=== PATIENT | female | born 1975 | race Caucasian/White ===

== ENCOUNTER 2017-03-28 23:34 | Emergency (ER) | payer OTHER ==
[~2017-03-28] VITALS: Ht 152.4 cm; Wt 63.4 kg
[2017-03-29] MEDS ORDERED: PRED20TA PO (04:21)
[2017-03-29] MEDS ORDERED: predniSONE 20 MG TAB PO ONE (04:30)
[2017-03-29] MEDS ORDERED: hydrOXYzine 25 MG TAB PO ONE (04:30)
[2017-03-29] MEDS ORDERED: hydrOXYzine 50 MG TAB PO ONE (04:30)
[2017-03-29 04:34] VITALS: BP 126/80
== END 2017-03-29 04:37 | disposition home or self-care (01) ==
LOC: M ED 03-29 00:51
DX: L25.9 Unspecified contact dermatitis, unspecified cause (principal); Z88.0 Allergy status to penicillin

== ENCOUNTER 2017-05-23 19:01 | Emergency (ER) | payer OTHER ==
[~2017-05-23] VITALS: Ht 152.4 cm; Wt 60.2 kg
[~2017-05-23 19:01] MED LIST: PRED20TA PO
[2017-05-23] MEDS ORDERED: [UNRECOGNIZED DRUG - OTHER] (19:14)
[2017-05-23] MEDS ORDERED: ACETAMINOPHEN 325 MG TAB PO ONE (19:30)
[2017-05-23 20:50] VITALS: BP 148/52
--- NOTE | 2017-05-24 01:04 | REP ---
Clinical: Trauma. Technique: AP, lateral, bilateral oblique and sunrise views of the right knee. Findings: No acute fracture or dislocation. Age-related changes are appreciated. Effusion cannot be excluded. Impression: Effusion suggested. No acute fracture or dislocation. Signed by Ray Bar MD 05/24/2017 12:55 A
== END 2017-05-23 20:51 | disposition home or self-care (01) ==
LOC: M ED 19:32
DX: S80.01XA Contusion of right knee, initial encounter (principal); W18.09XA Striking against other object with subsequent fall, initial encounter; Y92.019 Unspecified place in single-family (private) house as the place of occurrence of the external cause; Y93.89 Activity, other specified; Y99.8 Other external cause status; Z88.0 Allergy status to penicillin

== ENCOUNTER 2019-08-18 12:11 | Inpatient (IN) | payer MEDICAID, OTHER ==
[~2019-08-18] VITALS: Ht 152.4 cm; Wt 77.3 kg
[~2019-08-18 12:11] MED LIST changes: +[UNRECOGNIZED DRUG - OTHER]
[2019-08-18 12:59] LABS: HEMATOCRIT 51.6 % (36.0-47.0); MEAN CORPUSCULAR HEMOGLOBIN 29.6 pg (27.0-33.0); MEAN CORPUSCULAR HGB CONC 32.9 g/dl (32.0-36.5); MEAN CORPUSCULAR VOLUME 89.9 fl (80.0-96.0); PLATELET COUNT, AUTOMATED 323 10^3/uL (150-450); RED BLOOD COUNT 5.74 10^6/uL (4.00-5.40)
[2019-08-18 13:25] LABS: HCG, SERUM QUALITATIVE NEGATIVE (NEGATIVE)
[2019-08-18 13:32] LABS: AMPHETAMINES LEVEL URINE NEGATIVE (NEGATIVE); BARBITURATES URINE NEGATIVE (NEGATIVE); BENZODIAZEPINES URINE NEGATIVE (NEGATIVE); CANNABINOIDS URINE NEGATIVE (NEGATIVE); COCAINE METABOLITE URINE NEGATIVE (NEGATIVE); METHADONE URINE NEGATIVE (NEGATIVE); OPIATES URINE NEGATIVE (NEGATIVE); PHENCYCLIDINE URINE NEGATIVE (NEGATIVE)
[2019-08-18 13:34] LABS: ACETAMINOPHEN LEVEL < 2.0 UG/ML (10.0-30.0); ALT/SGPT 30 U/L (12-78); BILIRUBIN,DIRECT 0.1 MG/DL (0.0-0.2); BILIRUBIN,TOTAL 0.5 MG/DL (0.2-1.0); BLOOD UREA NITROGEN 6 MG/DL (7-18); CALCIUM LEVEL 9.6 MG/DL (8.5-10.1); CARBON DIOXIDE LEVEL 28 MEQ/L (21-32); CHLORIDE LEVEL 106 MEQ/L (98-107); CREATININE FOR GFR 0.95 MG/DL (0.55-1.30); ETHYL ALCOHOL (ETHANOL) < 0.003 % (0.000-0.010); GLOMERULAR FILTRATION RATE > 60.0 (>58); GLUCOSE, FASTING 88 MG/DL (70-100); POTASSIUM SERUM 4.3 MEQ/L (3.5-5.1); SALICYLATE LEVEL 1.8 MG/DL (5.0-30.0); SODIUM LEVEL 142 MEQ/L (136-145); THYROID STIMULATING HORMONE 0.937 uIU/ML (0.358-3.740); TOTAL PROTEIN 7.6 GM/DL (6.4-8.2)
[2019-08-18] MEDS ORDERED: MOM 30ML SUSPENSION UDC PO PRN (16:45)
[2019-08-18 17:21] VITALS: BP 139/80
[2019-08-18] MEDS: IBUPROFEN 400 MG TAB PO PRN (19:44)
[2019-08-18] MEDS: traZODone 50 MG TAB PO PRN (22:40)
[2019-08-19 06:26] VITALS: BP 135/75
[2019-08-19] MEDS: IBUPROFEN 400 MG TAB PO PRN ×2 (08:13→20:49)
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
--- NOTE | 2019-08-19 11:44 | CR.PDOC ---
General Date of Consultation: Aug 19, 2019 Consultation CHIEF COMPLAINT: Suicidal ideation HISTORY OF PRESENT ILLNESS: This is a 44-year-old female with a known history of depression and ADHD presents with suicidal ideation brought in the emergency room by police with a plan to stab herself. She seen examined in the inpatient mental health unit today is the presence of traffic rate analyst. The patient, she has been without her medications for 1 month although she does not take significant medications other than her psychiatric ones. Otherwise patient denies weight loss, hair loss, headache, visual changes, chest pain, shortness of breath, cough, nausea, vomiting, diarrhea, abdominal pain, muscle aches, worsening arthritis, change in mood PAST MEDICAL HISTORY: 1. Obesity. 2. Tobacco abuse. 3. Asthma 4. ADHD 5. Diabetes not on any medications 6. Menorrhagia. HOME MEDICATIONS: Please see below. ALLERGIES: Please see below PAST SURGICAL HISTORY: None. 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 ETOH: Denies, Illicit drug use: Denies but admits to 4 cans of red bull per day, CODE STATUS: For code FAMILY HISTORY:Reviewed and noncontributory REVIEW OF SYSTEMS: 10 systems reviewed and negative other than HPI PHYSICAL EXAMINATION: VITAL SIGNS: Temperature 99.9, pulse 70, respiratory rate 14, blood pressure 135/75, pulse oximetry 96 % on room air. GENERAL: Pleasant morbidly obese female sitting up in awake alert oriented speaking in complete sentences no acute distress HEENT: Moist mucous membranes no elevation in CVP CARDIOVASCULAR: S1 S2 regular no additional heart sounds appreciated. RESPIRATORY: Clear to auscultation bilaterally. ABDOMINAL: Bowel sounds present abdomen soft and nontender, obese EXTREMITIES: No clubbing cyanosis or edema NEUROLOGICAL: Spontaneously moves all 4 extremities cranial 2 through 12 grossly intact no gross focal deficits appreciated PSYCHOLOGICAL: Somewhat depressed LABORATORY DATA: See below. MICROBIOLOGY: Please see below. IMAGING: None ASSESSMENT & PLAN: This is a 44-year-old female with suicidal ideation seen for medical exam as an inpatient mental health unit admission. PROBLEMS: 1. Diabetes: I'll check hemoglobin A1c she is not currently on any medication we'll evaluate the need for initiation of any. 2. Asthma: She uses only when necessary given her reactive tobacco use though certainly concern for possible underlying COPD recommended outpatient follow-up I'll provide her with an MDI while hospitalized when necessary she's been without this for a month 3. Polycythemia: Possibly related to tobacco abuse I will recheck a CBC today may have underlying sleep apnea as well given her body habitus consider further outpatient follow-up 4. Morbid obesity: Lifestyle modification advised complicating care 5. Tobacco abuse: Cessation counseling provided 6. ADHD: Patient requests resumption of her home medications will defer to psychiatry 7. Suicidal ideation: We'll defer to psychiatry DVT PROPHYLAXIS:Ambulating Thank you for involving us in this interesting patient's care please not hesitate to Vocera Secure text us with any specific questions Vital Signs/I&O Vital Signs Date Time Temp Pulse Resp B/P (MAP) Pulse Ox O2 Delivery O2 Flow Rate FiO2 08/19/19 08:47 Room Air 08/19/19 06:26 99.9 70 14 135/75 (95) 08/18/19 17:08 96 Laboratory Data Labs 24H Laboratory Tests 2 08/18/19 12:38: Nucleated Red Blood Cells % (auto) 0.0, Anion Gap 8, Glomerular Filtration Rate > 60.0, Calcium Level 9.6, Aspartate Amino Transf (AST/SGOT) 22, Alanine Aminotransferase (ALT/SGPT) 30, Alkaline Phosphatase 104, Total Bilirubin 0.5, Direct Bilirubin 0.1, Total Protein 7.6, Albumin 4.0, Albumin/Globulin Ratio 1.11, Thyroid Stimulating Hormone (TSH) 0.937, Human Chorionic Gonadotropin, Qual NEGATIVE, Salicylates Level 1.8L, Urine Amphetamines Screen NEGATIVE, Urine Benzodiazepines Screen NEGATIVE, Urine Opiates Screen NEGATIVE, Urine Methadone Screen NEGATIVE, Acetaminophen Level < 2.0L, Urine Barbiturates Screen NEGATIVE, Urine Phencyclidine Screen NEGATIVE, Urine Cocaine Metabolite Screen NEGATIVE, Urine Cannabinoids Screen NEGATIVE, Ethyl Alcohol Level < 0.003 CBC/BMP Laboratory Tests 08/18/19 12:38 Red Blood Count 5.74 H, Mean Corpuscular Volume 89.9, Mean Corpuscular Hemoglobin 29.6, Mean Corpuscular Hemoglobin Concent 32.9, Red Cell Distribution Width 12.6 Allergies Coded Allergies: Penicillins (Verified Allergy, Unknown, 08/18/19) Home Medications No Active Prescriptions or Reported Meds NAHID LANGLEY MD Aug 19, 2019 11:44
[2019-08-19] MEDS ORDERED: FLUoxetine 10 MG CAP PO ONE (12:15)
[2019-08-19] MEDS: ALBUTEROL 90 MCG/ACT 8GM HFA INHALER INH PRN ×2 (12:15→20:49)
[2019-08-19 12:18] LABS: HEMATOCRIT 45.6 % (36.0-47.0); MEAN CORPUSCULAR HEMOGLOBIN 29.4 pg (27.0-33.0); MEAN CORPUSCULAR HGB CONC 32.7 g/dl (32.0-36.5); MEAN CORPUSCULAR VOLUME 90.1 fl (80.0-96.0); PLATELET COUNT, AUTOMATED 289 10^3/uL (150-450); WHITE BLOOD COUNT 12.6 10^3/uL (4.0-10.0)
[2019-08-19 12:34] LABS: HEMOGLOBIN A1c 5.6 %
[2019-08-19 14:10] LABS: HEMOGLOBIN 14.9 g/dl (12.0-15.5); RED BLOOD COUNT 5.06 10^6/uL (4.00-5.40)
[2019-08-19 16:37] VITALS: BP 121/79
[2019-08-19] MEDS: traZODone 50 MG TAB PO PRN (20:49)
[2019-08-19] MEDS: hydrOXYzine 25 MG TAB PO PRN (20:49)
[2019-08-19] MEDS: MAALOX 30 ML SUSP *UDC PO PRN (22:13)
[2019-08-20 06:24] VITALS: BP 106/57
[2019-08-20] MEDS: FLUoxetine 20 MG CAP PO SCH (08:53)
[2019-08-20] MEDS: IBUPROFEN 400 MG TAB PO PRN ×2 (08:54→19:32)
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
[2019-08-20] MEDS: hydrOXYzine 25 MG TAB PO PRN ×2 (13:45→20:18)
[2019-08-20 18:00] VITALS: BP 133/80
[2019-08-20] MEDS: ALBUTEROL 90 MCG/ACT 8GM HFA INHALER INH PRN (20:18)
[2019-08-20] MEDS: MAALOX 30 ML SUSP *UDC PO PRN (20:40)
[2019-08-20] MEDS: traZODone 50 MG TAB PO PRN (21:24)
[2019-08-21 06:24] VITALS: BP 149/67
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
[2019-08-21] MEDS: FLUoxetine 20 MG CAP PO SCH (08:45)
[2019-08-21] MEDS: IBUPROFEN 400 MG TAB PO PRN (08:46)
[2019-08-21 15:40] VITALS: BP 118/60
[2019-08-21] MEDS: ALBUTEROL 90 MCG/ACT 8GM HFA INHALER INH PRN (20:45)
[2019-08-21] MEDS: traZODone 50 MG TAB PO PRN (20:46)
[2019-08-21] MEDS: MAALOX 30 ML SUSP *UDC PO PRN (21:32)
[2019-08-21] MEDS: hydrOXYzine 25 MG TAB PO PRN (22:39)
[2019-08-22 06:28] VITALS: BP 131/76
[2019-08-22] MEDS: FLUoxetine 20 MG CAP PO SCH (08:07)
[2019-08-22] MEDS: ALBUTEROL 90 MCG/ACT 8GM HFA INHALER INH PRN ×2 (08:07→20:19)
[2019-08-22] MEDS: hydrOXYzine 25 MG TAB PO PRN (14:33)
[2019-08-22 16:00] VITALS: BP 123/60
[2019-08-22] MEDS: IBUPROFEN 400 MG TAB PO PRN (20:18)
[2019-08-22] MEDS: traZODone 50 MG TAB PO PRN (20:18)
[2019-08-22] MEDS: MAALOX 30 ML SUSP *UDC PO PRN (21:01)
[2019-08-23 06:31] VITALS: BP 124/72
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
[2019-08-23] MEDS: FLUoxetine 20 MG CAP PO SCH (08:13)
[2019-08-23] MEDS: ALBUTEROL 90 MCG/ACT 8GM HFA INHALER INH PRN ×2 (08:13→20:09)
[2019-08-23] MEDS: IBUPROFEN 400 MG TAB PO PRN (08:14)
[2019-08-23 16:00] VITALS: BP 131/74
--- NOTE | 2019-08-23 16:35 | MHIPN ---
DATE: 08/10/2208/23/2019 CHIEF COMPLAINT: Says feels okay. SUBJECTIVE: Seen for followup in the presence of staff. Says feels okay, moods are okay, and that she had a good night. MENTAL STATUS EXAMINATION: Neat, cooperative, coherent, no agitation. Affect is reasonable range. Denies any thoughts of harming herself or anyone else. Currently, no evidence of any psychosis. Cognition grossly intact. Judgment and insight improved. ASSESSMENT: 1. Other specified anxiety disorder. PLAN: Continue current care and observations, she will be seeing her psychiatrist and the treatment team tomorrow. She has been encouraged to participate in activities in the unit. VITAL SIGNS: Blood pressure 124/72, pulse 52, temperature 98.6.
[2019-08-23] MEDS: traZODone 50 MG TAB PO PRN (20:07)
[2019-08-23] MEDS: MAALOX 30 ML SUSP *UDC PO PRN (21:08)
[2019-08-24] MEDS: hydrOXYzine 25 MG TAB PO PRN (06:06)
[2019-08-24 06:21] VITALS: BP 148/65
[2019-08-24] MEDS: FLUoxetine 20 MG CAP PO SCH (09:15)
[2019-08-24] MEDS ORDERED: FLUO20CA19 PO (10:01)
[2019-08-24] MEDS ORDERED: HYDR-3363 PO (10:01)
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
== END 2019-08-24 13:33 | disposition home or self-care (01) | DRG 755 ==
LOC: M ED 12:11 → M ED INP 16:42 → M PSY 17:14
PROVIDERS: ADMIT Psychiatry & Neurology Addiction Medicine; ATTEND Psychiatry & Neurology Psychiatry
DX: F43.23 Adjustment disorder with mixed anxiety and depressed mood (principal); F70 Mild intellectual disabilities; F17.210 Nicotine dependence, cigarettes, uncomplicated; F12.90 Cannabis use, unspecified, uncomplicated; F90.9 Attention-deficit hyperactivity disorder, unspecified type; E66.01 Morbid (severe) obesity due to excess calories; E11.9 Type 2 diabetes mellitus without complications; J45.909 Unspecified asthma, uncomplicated; N92.0 Excessive and frequent menstruation with regular cycle; D75.1 Secondary polycythemia; Z88.0 Allergy status to penicillin; Z91.14 Patient's other noncompliance with medication regimen; Z91.410 Personal history of adult physical and sexual abuse; Z63.8 Other specified problems related to primary support group

== ENCOUNTER → 2021-06-20 | Outpatient (CLI) | payer OTHER ==
[~2021-06-20] MED LIST changes: +FLUO20CA22 PO; +HYDR-3363 PO
--- NOTE | 2021-06-20 11:44 | REP ---
INDICATION: PAIN IN LEFT FOOT. COMPARISON: None. TECHNIQUE: Four views of the left foot. FINDINGS: Four views of the left foot demonstrate plantar calcaneal spurring. Overall mineralization pattern is normal. Bones, joints and soft tissues are otherwise unremarkable.. No fracture or subluxation is seen. No opaque foreign body noted. IMPRESSION: Plantar heel spur. Otherwise negative radiographs of the left foot.. <Electronically signed by Mega Galan > 06/20/21 [id number]
== END ==
LOC: M RAD 09:42
PROVIDERS: ATTEND Pediatrics
DX: M79.672 Pain in left foot (principal); M77.32 Calcaneal spur, left foot

== ENCOUNTER → 2021-09-01 | Outpatient (CLI) | payer OTHER ==
--- NOTE | 2021-09-01 13:33 | REP ---
INDICATION: PAIN IN LEFT FOOT. COMPARISON: None. TECHNIQUE: Four views FINDINGS: The joint spaces are symmetric and relatively well maintained. There is no evidence of acute fracture or destructive osseous lesion. There is a plantar calcaneal heel spur IMPRESSION: No acute osseous abnormality. <Electronically signed by Mark Gillespie > 09/01/21 [id number]
== END ==
LOC: M RAD 12:54
PROVIDERS: ATTEND Pediatrics
DX: M77.30 Calcaneal spur, unspecified foot (principal); M79.672 Pain in left foot

== ENCOUNTER → 2023-09-04 | Outpatient (REF) | payer OTHER ==
[2023-09-04 18:03] LABS: FOLLICLE STIMULATING HORMONE 28.4 mIU/ML; LUTEINIZING HORMONE 13.8 mIU/ML
[2023-09-04 18:17] LABS: HCG, SERUM QUALITATIVE NEGATIVE (NEGATIVE)
== END ==
LOC: M LAB REF 16:29
PROVIDERS: ATTEND Pediatrics
DX: Z30.9 Encounter for contraceptive management, unspecified (principal)

== ENCOUNTER → 2024-01-07 | Outpatient (REF) | payer OTHER ==
[2024-01-07 20:25] LABS: HCG, SERUM QUANTITATIVE 2.6 MIU/ML (<4.2)
[2024-01-07 20:28] LABS: FOLLICLE STIMULATING HORMONE 36.1 mIU/ML
[2024-01-07 20:29] LABS: LUTEINIZING HORMONE 19.5 mIU/ML; THYROID STIMULATING HORMONE 2.059 uIU/ML (0.55-4.78)
== END ==
LOC: M LAB REF 17:28
PROVIDERS: ATTEND Pediatrics
DX: N91.2 Amenorrhea, unspecified (principal)

== ENCOUNTER → 2024-06-23 | Outpatient (REF) | payer OTHER ==
[~2024-06-23] MED LIST changes: +FLUO-365 PO; -FLUO20CA22 PO
[2024-06-23 14:12] LABS: HEMOGLOBIN A1c 5.3 % (4.0-6.0)
[2024-06-23 14:13] LABS: FOLLICLE STIMULATING HORMONE 34.4 mIU/ML; THYROID STIMULATING HORMONE 1.649 uIU/ML (0.55-4.78)
[2024-06-23 14:15] LABS: ALBUMIN 3.9 G/DL (3.2-5.2); ALKALINE PHOSPHATASE 131 U/L (46-116); ALT/SGPT 28 U/L (7.0-40); AST/SGOT 17 U/L (<34); BILIRUBIN,TOTAL 0.5 MG/DL (0.3-1.2); BLOOD UREA NITROGEN 15 MG/DL (9-23); CALCIUM LEVEL 9.5 MG/DL (8.5-10.1); CARBON DIOXIDE LEVEL 30 MMOL/L (20-31); CHLORIDE LEVEL 105 MMOL/L (98-107); CHOLESTEROL LEVEL 156 MG/DL (<200); CREATININE FOR GFR 0.95 MG/DL (0.55-1.30); GLOMERULAR FILTRATION RATE > 60.0 (>51); GLUCOSE, FASTING 91 MG/DL (60-100); HDL CHOLESTEROL 31.8 MG/DL (>40); LDL CHOLESTEROL 105.8 MG/DL (<100); LUTEINIZING HORMONE 30.7 mIU/ML; NON-HDL-C 124.2 MG/DL; POTASSIUM SERUM 4.6 MMOL/L (3.5-5.1); SODIUM LEVEL 140 MMOL/L (136-145); TOTAL PROTEIN 6.6 G/DL (5.7-8.2); TRIGLYCERIDES LEVEL 92 MG/DL (<150)
== END ==
LOC: M LAB REF 13:02
PROVIDERS: ATTEND Pediatrics
DX: E78.5 Hyperlipidemia, unspecified (principal); Z68.38 Body mass index [BMI] 38.0-38.9, adult; N92.6 Irregular menstruation, unspecified; E66.8 Other obesity